=== PATIENT | female | born 1960 | race Two or more races ===

== ENCOUNTER 2025-07-17 09:28 | Emergency (ER) | payer OTHER ==
[~2025-07-17] VITALS: Ht 157.5 cm; Wt 68.9 kg
[2025-07-17] MEDS ORDERED: METFORMIN HCL1000 M2 PO (09:56)
[2025-07-17] MEDS ORDERED: HYZAAR 100-251 EACH PO (09:57)
[2025-07-17 14:11] LABS: BASO % 0.5 % (0.1-1.2); EOS # 0.13 (0.04-0.54); EOS % 1.3 % (0.7-7.0); LYMPH # 3.40 (1.18-3.74); LYMPH % 33.8 % (19.3-53.1); MEAN PLATELET VOLUME 10.70 fl (9.4-12.4); MONO # 0.63 (0.24-0.82); MONO % 6.3 % (4.7-12.5); NEUT # 5.81 (1.56-6.13); NEUT % 57.8 % (34.0-71.1); RED CELL DISTRIBUTION WIDTH 14.0 % (11.6-14.4)
[2025-07-17 14:12] LABS: ERYTHROCYTE SEDIMENTATION RATE 10 mm/hr (0-30)
[2025-07-17 14:16] LABS: URINE APPEARANCE Clear; URINE BILIRRUBIN Negative (NEGATIVE); URINE BLOOD Negative; URINE COLOR Yellow; URINE GLUCOSE Negative (NEGATIVE); URINE KETONE Negative (NEGATIVE); URINE LEUKOCYTE Negative; URINE NITRATE Negative; URINE PROTEIN Negative (NEGATIVE); URINE UROBILINOGEN 0.2 E.U./dl
[2025-07-17 14:17] LABS: URINE BACTERIA 10.7 uL (0.0-1933); URINE EPITHELIAL CELLS 10.9 uL (0.0-38.8); URINE RBC 4.1 uL (0.0-20.8); URINE WBC 2.3 uL (0.0-23.2)
[2025-07-17] MEDS ORDERED: 0.9 % SODIUM CHLORIDE 1,000 ML IV STA (14:17)
[2025-07-17] MEDS ORDERED: KETOROLAC TROMETHAMINE 30 MG VIAL IM STA (14:17)
[2025-07-17 14:31] LABS: URINE CAST 0.00 uL (0.0-1.40)
[2025-07-17 14:42] LABS: ALT/SGPT 41.0 U/L (12-78); AST/SGOT 24.0 U/L (15-37); BILIRUBIN TOTAL 1.11 mg/dL (0.3-1.2); BUN CREA RATIO 21.0 (7.0-25.0); CREATININE SERUM 0.9 mg/dL (0.55-1.02); GFR 63.24; GLOBULINA 3.9 G/DL (2.4-3.5); GLUCOSE FASTING 125.0 mg/dL (65-100); OSMOLALITY SERUM 283.0 MOSM/KG (275-295)
[2025-07-17 15:03] LABS: COVID-19 AG NEGATIVE (NEGATIVE)
[2025-07-17 15:03] LABS: INR 1.04
[2025-07-17] MEDS ORDERED: XYZAL5 MG PO (16:35)
== END 2025-07-17 17:04 | disposition home or self-care (01) ==
LOC: ER 09:28
PROVIDERS: Physician Assistant Medical
DX: B34.9 Viral infection, unspecified (principal); E86.0 Dehydration; I10 Essential (primary) hypertension; E11.9 Type 2 diabetes mellitus without complications; Z79.84 Long term (current) use of oral hypoglycemic drugs; Z20.822 Contact with and (suspected) exposure to COVID-19